=== PATIENT | male | born 1960 | race Two or more races ===

== ENCOUNTER 2025-02-24 08:34 | Day surgery (SDC) | payer BC, OTHER ==
[2025-02-21 09:08] LABS: Hematocrit 42.4 % (41.0-53.0); Hemoglobin 14.6 g/dL (13.5-17.5); Mean Corpuscular Hemoglobin 30.8 pg (28.0-32.0); Mean Corpuscular Volume 89.8 fL (80.0-100.0); Nucleated Red Blood Cells % 0.0 %
[2025-02-21 09:23] LABS: INR 1.17 (0.9-1.15); Partial Thromboplastin Time 28.2 SEC (24.5-34.5); Prothrombin Time 12.2 sec (9.3-11.8)
[2025-02-21 09:25] LABS: Alanine Aminotransferase 30 U/L (7-40); Albumin 4.4 g/dL (3.2-4.8); Alkaline Phosphatase 50 U/L (46-116); Anion Gap 7 (5-15); BUN/Creatinine Ratio 11.9 (10.0-20.0); Blood Urea Nitrogen 12 mg/dL (9-23); Calcium 9.1 mg/dL (8.7-10.4); Carbon Dioxide 25 mmol/L (20-31); Glucose 102 mg/dL (74-106); Potassium 4.8 mmol/L (3.5-5.1); Sodium 141 mmol/L (136-145); Total Protein 6.8 g/dL (5.7-8.2)
[2025-02-21 09:26] LABS: Bilirubin, Total 0.7 mg/dL (0.2-1.0)
[2025-02-21 09:36] LABS: Chloride 109 mmol/L (98-107)
[2025-02-21 12:21] LABS: Urine Protein, UAD Negative (Negative)
[~2025-02-24] VITALS: Ht 177.8 cm; Wt 77.1 kg
[~2025-02-24 08:34] MED LIST: APIX5TAB PO; ASPI81CH59 PO; COEN400C8 OR; EZET10TA22 PO; MULT1CHW76 PO; PROB1CHW27 PO; RED1CAP PO; ROSU20TA14 PO; VITA100T3 PO; [UNRECOGNIZED DRUG - CODE] PO
[2025-02-24] MEDS ORDERED: KETAMINE 50mg/ML 1ml syringe IV ONE (08:35)
[2025-02-24] MEDS ORDERED: ONDANSETRON HCL 4 MG/2 ML VIAL ONE (09:13)
[2025-02-24] MEDS ORDERED: fentaNYL CITRATE 100 MCG/2 ML VL ONE (09:13)
[2025-02-24] MEDS ORDERED: MIDAZOLAM HCL 2MG/2ML 2ml VIAL (1mg/ml) ONE (09:13)
[2025-02-24] MEDS ORDERED: SODIUM CHLORIDE LOCK 10 ML ONE (09:13)
[2025-02-24] MEDS ORDERED: PROPOFOL 10 MG/ML 20 ML IV ONE (09:13)
--- NOTE | 2025-02-24 09:26 | DVHHP2 ---
GI H&P Pre-Op Assessment Date: 02/24/25 Chief complaint: abdominal pain HPI: per clinic note Past medical history: per clinic note Past surgical history: per clinic note Family history: per clinic note Physical exam: General: NAD, AAOX3 HEENT: PERRL, no scleral icterus, normal hearing, gums without lesions or ble eding, oropharynx clear without erythema or exudate. Neck: Supple without enlargement of the thyroid, or lymphadenopathy. Chest: Normal size and shape, no tenderness, lung biggs clear to auscultation and percussion, nonlabored breathing. Heart: RRR, no murmur Abdomen: non-distended, no tenderness to palpation, +BS, no hepatosplenomegaly Extremities: no edema Neurological: CN II-XII intact, sensation intact in all extremities, 5+ strength in all extremities Skin: No rashes, No jaundice Assessment: - abdominal pain Plan: - EGD - Colonoscopy - Risks (bleeding, infection, perforation, reaction to sedation medications and cardiopulmonary arrest) and benefit of the procedure were explained to patient. Patient agrees to undergo the procedure. SKY RING MD Feb 24, 2025 09:26
[2025-02-24 09:56] VITALS: PULSE 64; RESP 14; TEMP 97.2; O2SAT 97
--- NOTE | 2025-02-24 10:00 | DVHHP2 ---
GI H&P Pre-Op Assessment Date: 02/24/25 Chief complaint: colon cancer screening HPI: per clinic note Past medical history: per clinic note Past surgical history: per clinic note Family history: per clinic note Physical exam: General: NAD, AAOX3 HEENT: PERRL, no scleral icterus, normal hearing, gums without lesions or bleeding, oropharynx clear without erythema or exudate. Neck: Supple without enlargement of the thyroid, or lymphadenopathy. Chest: Normal size and shape, no tenderness, lung biggs clear to auscultation and percussion, nonlabored breathing. Heart: RRR, no murmur Abdomen: non-distended, no tenderness to palpation, +BS, no hepatosplenomegaly Extremities: no edema Neurological: CN II-XII intact, sensation intact in all extremities, 5+ strength in all extremities Skin: No rashes, No jaundice Assessment: - colon cancer screening Plan: - Colonoscopy - Risks (bleeding, infection, perforation, reaction to sedation medications and cardiopulmonary arrest) and benefit of the procedure were explained to patient. Patient agrees to undergo the procedure. SKY RING MD Feb 24, 2025 10:00
--- NOTE | 2025-02-24 10:01 | DVHOP2 ---
Operative Report DATE OF OPERATION: 02/24/25 PROCEDURE: Colonoscopy. PREOPERATIVE INDICATION: The patient is a 64 -year-old male undergoing colonoscopy for colon cancer screening. POSTOPERATIVE DIAGNOSES: 1. 2 mm sigmoid colon polyp was removed with cold biopsy forceps. PROCEDURE PERFORMED BY: Ilia Pal M.D. SCOPE: Olympus videocolonoscope. ASA CLASS: 3 PREOPERATIVE MEDICATIONS: MAC with Dr Shahid PROCEDURE IN DETAIL: After obtaining an informed consent, the patient was placed on left lateral decubitus position. He was then sedated with the above medications. A rectal examination was performed that was normal. The colonoscope was then passed through the anus into the rectosigmoid and through the descending, transverse, and ascending colon up to the cecum with visualization of the appendiceal orifice, base of the cecum and the ileocecal valve. A 2 mm sigmoid colon polyp was removed with cold biopsy forceps. The colonoscope was then withdrawn. The patient tolerated the procedure well without difficulty. WITHDRAWAL TIME: 6 minutes QUALITY OF THE PREP: [place] Bowel Prep score: 6 COMPLICATIONS : None SPECIMENS: Colon polyp DISPOSITION: D/C to home PLAN: 1. Repeat colonoscopy base on biopsy result ILIA PAL MD Feb 24, 2025 10:01
--- NOTE | 2025-02-24 10:02 | DVHDS2 ---
Physician Discharge Progress N Final Diagnosis: Colon polyp Operations or Procedures: Operations or Procedures Colonoscopy with cold biopsy polypectomy Condition on Discharge: Good Disposition: Home Discharge Instructions: Diet: Regular Activity: No Restrictions, As Tolerated Medications: Resume with previous home medications Follow Up Care: Discharge Statement: "Patient was advised to return to the ER or call 911 if any headaches, dizziness, shortness of breath, chest pain, abdominal pain, bleeding, fevers, or worsening of medical condition. Patient was counseled about treatment plan, medications, possible side effects, patientverbalized understanding. All questions were answered to the best of my ability. This discharge took greater then 30 minutes in planning, reviewing documentation, counseling the patient, and discussing with other team members." SKY RING MD Feb 24, 2025 10:02
[2025-02-24 10:20] VITALS: BP 109/68; PULSE 58; RESP 17; O2SAT 96
== END 2025-02-24 10:30 | disposition home or self-care (01) ==
LOC: GI 08:34
PROVIDERS: ATTEND Internal Medicine Gastroenterology
DX: R10.9 Unspecified abdominal pain (principal); K63.5 Polyp of colon; I48.91 Unspecified atrial fibrillation; Z86.73 Personal history of transient ischemic attack (TIA), and cerebral infarction without residual deficits
CPT/HCPCS: 36415; 80053; 81003; 85025; 85610; 85730; 88305; J2250; J2405; J2704; J3010; J7030; 45380